=== PATIENT | female | born 1975 | race African-American/Black ===

== ENCOUNTER 2017-03-22 05:48 | Inpatient (IN) ==
--- NOTE | 2017-03-20 12:42 | Order Completion Report ---
See report scanned to EMR
--- NOTE | 2017-03-20 12:49 | XRay Report ---
XR chest 2V Indication: Respiratory preoperative evaluation Comparison: None available Findings: The heart and mediastinum are normal in size and configuration. The pulmonary vascularity is normal in caliber. No lung infiltrates, effusions, pneumothorax or other abnormality is demonstrated. Impression: Normal chest x-ray PROCEDURE INTERPRETED AT [facility] DEPARTMENT OF RADIOLOGY Final Report Signed by: Dr. Dandy Orellana
[2017-03-20 13:19] LABS: Basophils # 0.1 10*3/uL (0.0-0.2); Basophils % 0.8 % (0.0-0.8); Eosinophils # 0.2 10*3/uL (0.0-0.87); Eosinophils % 2.3 % (0.00-10.9); Hematocrit 46.2 VOL% (35.7-47.0); Hemoglobin 15.7 GM/DL (12.0-16.0); Immature Granulocytes % 0.2 %; Immature Granulocytes Absolute 0.01 #; Lymphocytes # 2.6 10*3/uL (1.4-4.0); Lymphocytes % 39.4 % (21.3-54.2); Mean Corpuscular Hemoglobin 29 PG (27-34); Mean Corpuscular Volume 85.4 FL (87-102); Mean Platelet Volume 12.2 FL (9.6-12.0); Monocytes # 0.5 10*3/uL (0.11-0.8); Monocytes % 7.9 % (1.7-12.7); Neutrophils # 3.3 10*3/uL (1.4-7.4); Neutrophils % 49.4 % (38.7-73.9); Platelet Count 253 T/CUMM (130-400); Red Blood Count 5.41 MC/CUMM (3.8-5.5); Red Cell Distribution Width 13.5 % (9.3-17.3); White Blood Count 6.6 T/CUMM (4-12)
[2017-03-20 13:30] LABS: Apearance,Urine CLOUDY (Clear); Bacteria,Urine Many /HPF (Few); Bilirubin,Urine Negative (Negative); Blood, Urine Small mg/dL (Negative); Glucose,Urine (UA) Negative (Negative); Hyaline Casts,Urine 1 /LPF (0-3); Ketones,Urine Negative (Negative); Mucus,Urine Few /LPF (Occasional); Nitrite,Urine Negative (Negative); Protein,Urine 30 MG/DL; RBC,Urine 2 /HPF (0-4); Squamous Epithelial Cell,Urine Occasional /HPF (0-10); Urine Color Yellow (Yellow); Urine Specific Gravity 1.029 (1.001-1.035); WBC,Urine 2 /HPF (0-6)
[2017-03-20 14:14] LABS: Albumin 4.1 G/DL (3.4-5.0); Bilirubin,Total 0.6 MG/DL (0.2-1.0); Calcium 9.4 MG/DL (8.5-10.1); Osmolality,Calculated 280.4 MOS/KG (273-304); Potassium 3.1 MMOL/L (3.5-5.1); Risk Ratio 5.63; VLDL CHOLESTEROL 19.6 MG/DL
[2017-03-20 14:43] LABS: HIV Antigen/Antibody Result Nonreactive (Nonreactive)
[2017-03-22] MEDS ORDERED: LACTATED RINGERS 1,000 ML IV SCH ×2 (06:00→12:30)
[2017-03-22] MEDS ORDERED: AMPICILLIN/SULBACTAM 3,000 MG in SODIUM CHLORIDE 0.9% 50 ML IV ONE (07:30)
[2017-03-22] MEDS ORDERED: AMPICILLIN/SULBACTAM 3,000 MG VIAL ONE (07:58)
[2017-03-22] MEDS ORDERED: SODIUM CHLORIDE 0.9% 50 ML IV ONE (07:59)
[2017-03-22] MEDS ORDERED: SUGAMMADEX 200 MG/2 ML VIAL IV ONE (11:26)
--- NOTE | 2017-03-22 11:58 | Operative Note ---
Date of procedure: 03/22/17 Procedure: Preoperative diagnosis: [] Severe pelvic pain Postoperative diagnosis: Same Anesthesia: General. endotracheal anesthesia Estimated blood loss: [] 300 cc Surgeon: Dr. Guevara Findings: [] Uterine fibroids, pelvic adhesions, tubal ovarian bowel adhesions. Procedure: OSMEL/BSO The risks benefits and indications and alternatives the procedure were reviewed with the patient and informed consent was obtained. The patient was taken to the operating room with IV running and a Bennett catheter in place. Patient was placed in supine position, given general anesthesia, prepped and draped in the usual sterile fashion. An abdominal incision was made approximately 2 cm above the symphysis pubis and extended sharply to the rectus fascia. The fascia was then excised bilaterally with the curved Molina scissors. And the muscles of the anterior abdominal wall were in the midline by sharp and blunt dissection. Peritoneum was grasped between 2 pickups, elevated and entered sharply with the scalpel. The pelvis was examined with the findings noted above. A abdominal retractor was placed into the incision and the bowel packed away with moist laparotomy sponges. [] A tenaculum was placed on the cornea and used for retraction. The round ligaments on both sides were clamped, transected and suture ligated with 0 Vicryl the anterior leaf of the broad ligament was incised along the bladder was reflection to the midline from both sides. The bladder was then gently dissected off the lower uterine segment and the cervix with a sponge stick. The infundibulopelvic ligaments on both sides were then doubly clamped, transected and suture ligated with 0 Vicryl. Hemostasis was visualized. The uterine arteries were skeletonized bilaterally, clamped with Jacinto clamps, transected and suture ligated with 0 Vicryl and, hemostasis was assured. The uterosacral ligament were clamped on both sides, transected, and suture ligated in a similar fashion the cervix and uterus were amputated with cautery. The vaginal cuff angles were closed with [id number] stitches of 0 Vicryl and were transfixed to the ipsilateral cardinal and uterosacral ligaments. The remainder of the vaginal cuff was closed with a series of interrupted 0 Vicryl [id number] sutures hemostasis was assured. The ureters were identified bilaterally were well within normal limits the pelvis was irrigated copiously with warm normal saline. All laparotomy sponges and instruments were removed from the abdomen. The fascia was closed with running 0 Vicryl, and hemostasis was assured the skin was closed with patrice. Sponges, lap, needle and instrument counts were correct -2. The patient was extubated in the operating room was taken to the PAC unit, awake and in stable condition.. Surgeon / Physician: Sachi Guevara Results - Labs CBC & BMP: 03/20/17 13:09 03/20/17 13:09 Discharge Plan - Discharge Medications No Action hydroCHLOROthiazide [Hydrochlorothiazide] 25 mg PO DAILY amLODIPine [Norvasc] 10 mg PO DAILY - Follow Up or Referral - Forms/Instructions
[2017-03-22] MEDS ORDERED: ACETAMINOPHEN 325 MG TABLET PO PRN (12:00)
[2017-03-22] MEDS ORDERED: BISACODYL 10 MG SUPP RECTAL PRN (12:00)
[2017-03-22] MEDS ORDERED: ONDANSETRON 4 MG/2 ML VIAL IV PRN ×2 (12:00→12:01)
[2017-03-22] MEDS ORDERED: BENZOCAINE/MENTHOL LOZENGE 18/BOX PO PRN (12:00)
[2017-03-22] MEDS ORDERED: IBUPROFEN 800 MG TABLET PO PRN (12:00)
[2017-03-22] MEDS: HYDROmorphone 2 MG/1 ML VIAL IV PRN ×4 (12:09→12:31)
[2017-03-22] MEDS ORDERED: PROPOFOL 200 MG/20 ML VIAL IV ONE (12:25)
[2017-03-22] MEDS ORDERED: MIDAZOLAM 2 MG/2 ML VIAL ONE (12:25)
[2017-03-22] MEDS ORDERED: KETOROLAC 30 MG/1 ML VIAL ONE (12:25)
[2017-03-22] MEDS ORDERED: ONDANSETRON 4 MG/2 ML VIAL ONE (12:25)
[2017-03-22] MEDS ORDERED: fentaNYL 100 MCG/2 ML VIAL ONE (12:25)
[2017-03-22] MEDS ORDERED: DESFLURANE 1 UNIT/15 MINUTE INH ONE (12:25)
[2017-03-22] MEDS ORDERED: LACTATED RINGERS 1,000 ML IV ONE (12:26)
[2017-03-22] MEDS ORDERED: ACETAMINOPHEN 1,000 MG/100 ML VIAL IV ONE (12:26)
[2017-03-22] MEDS ORDERED: ROCURONIUM 100 MG/10 ML VIAL IV ONE (12:26)
[2017-03-22] MEDS ORDERED: SUCCINYLCHOLINE 200 MG/10 ML VIAL ONE (12:26)
[2017-03-22] MEDS ORDERED: HYDROmorphone PCA 30 MG/30 ML SYRINGE IV ONE (13:11)
[2017-03-22] MEDS ORDERED: HYDROmorphone PCA 30 MG/30 ML SYRINGE IV SCH (13:20)
[2017-03-22] MEDS ORDERED: NALOXONE 0.4 MG/ML VIAL IV PRN (13:26)
[2017-03-22] MEDS: ENOXAPARIN 40 MG/0.4 ML SYRINGE SUBCUT SCH (17:55)
[2017-03-22 18:24] LABS: Basophils % 0.2 % (0.0-0.8); Eosinophils % 0.2 % (0.00-10.9); Hemoglobin 13.7 GM/DL (12.0-16.0); Immature Granulocytes % 0.4 %; Immature Granulocytes Absolute 0.05 #; Lymphocytes # 1.9 10*3/uL (1.4-4.0); Lymphocytes % 15.5 % (21.3-54.2); Mean Corpuscular HGB Conc 34.3 GM/DL (32-36); Mean Corpuscular Hemoglobin 29 PG (27-34); Mean Corpuscular Volume 85.1 FL (87-102); Mean Platelet Volume 12.3 FL (9.6-12.0); Monocytes # 0.5 10*3/uL (0.11-0.8); Monocytes % 4.4 % (1.7-12.7); Neutrophils # 9.7 10*3/uL (1.4-7.4); Neutrophils % 79.3 % (38.7-73.9); Platelet Count 225 T/CUMM (130-400); Red Cell Distribution Width 13.2 % (9.3-17.3); White Blood Count 12.3 T/CUMM (4-12)
[2017-03-23] MEDS: LACTATED RINGERS 1,000 ML IV SCH ×2 (01:40)
[2017-03-23 05:10] LABS: Basophils % 0.4 % (0.0-0.8); Eosinophils # 0.1 10*3/uL (0.0-0.87); Eosinophils % 1.3 % (0.00-10.9); Hematocrit 39.9 VOL% (35.7-47.0); Hemoglobin 13.4 GM/DL (12.0-16.0); Immature Granulocytes % 0.3 %; Immature Granulocytes Absolute 0.02 #; Lymphocytes # 1.5 10*3/uL (1.4-4.0); Lymphocytes % 20.1 % (21.3-54.2); Mean Corpuscular HGB Conc 33.6 GM/DL (32-36); Mean Corpuscular Hemoglobin 29 PG (27-34); Mean Corpuscular Volume 86.6 FL (87-102); Monocytes # 0.7 10*3/uL (0.11-0.8); Monocytes % 9.5 % (1.7-12.7); Neutrophils # 5.3 10*3/uL (1.4-7.4); Neutrophils % 68.4 % (38.7-73.9); Platelet Count 218 T/CUMM (130-400); Red Blood Count 4.61 MC/CUMM (3.8-5.5); Red Cell Distribution Width 13.6 % (9.3-17.3); White Blood Count 7.7 T/CUMM (4-12)
[2017-03-23] MEDS: DOCUSATE SODIUM 100 MG CAPSULE PO PRN (08:02)
--- NOTE | 2017-03-23 08:03 | Anesthesia Post-Op ---
Anesthesia Post OP - Post Ansesthetic Evaluation Patient seen in post op: Yes Resp: within normal limits CV: within normal limits Mental: within normal limits Temp: within normal limits [id number]: within normal limits Nausea and Vomiting: within normal limits Pain: within normal limits
--- NOTE | 2017-03-23 12:22 | Pathology Report from [facility] ---
[facility] [place] # : [id number] PATIENT NAME : Cielo Ricci ORDERING DR : NIDA APODACA MD CLINICAL HX: Pelvic pain, uterine fibroids POST-OP DX: Same SPECIMEN INFO: Uterus, cervix, bilateral tubes & ovaries GROSS DESCRIPTION: The specimen is received in formalin labeled with the patients name CIELO RICCI and consists of a 143 gram uterus and cervix measuring 12.0 x 6.0 x 5.5 cm. The serosa is red-rinaldi with adhesions present. The cervix measures 2.5 cm. The cervical os measures 0.5 cm. The endocervical canal is rinaldi and patent. The endometrial cavity has an average mucosal thickness of 0.3 cm. A possible polyp is present in the cavity which measures 2.0 x 1.3 cm. Sectioning reveals several pink-white myometrial nodules measuring up to 2.1 x 2.0 cm. The right ovary measures 3.0 x 2.7 cm with adhesions noted on the ovary surface. Sectioning reveals no gross abnormalities. The adjacent fallopian tube is fimbriated measuring 5.5 x 0.7 cm with paratubal adhesions noted. The left ovary measures 3.5 x 2.7 cm with adhesions noted on the ovary surface. Sectioning reveals no gross abnormalities. The adjacent fallopian tube is fimbriated and measures 6.0 x 0.7 cm. Sections submitted: A cervix, B and C endomyometrium, D serosal adhesions, posterior uterine serosa, E nodules, F right ovary and tube, G left ovary and tube. DIAGNOSIS FOR CIELO RICCI: UTERUS, CERVIX, BILATERAL TUBES & OVARIES: Chronic cervicitis. Cystic proliferative endometrium with polypoid changes. Leiomyomas. Right ovary with fibrosis; fallopian tube. Left ovary with fibrosis; fallopian tube. COLLECTED DATE: 03/22/2017 [facility] REPORT DATE: 03/23/2017 ELECTRONICALLY SIGNED BY: Tc Arizmendi M.D. 03/23/2017 - 9:05:37 [facility]
[2017-03-23] MEDS ORDERED: IBUPROFEN 800 MG TABLET ONE (14:13)
[2017-03-23] MEDS: oxyCODONE/ACETAMINOPHEN 5-325 MG TABLET PO PRN ×2 (14:16→22:16)
[2017-03-23] MEDS: IBUPROFEN 800 MG TABLET PO PRN ×2 (14:18→22:16)
[2017-03-23] MEDS: ENOXAPARIN 40 MG/0.4 ML SYRINGE SUBCUT SCH (17:47)
[2017-03-23] MEDS: MAGNESIUM HYDROXIDE SUSP 30 ML UDCUP PO PRN (20:58)
[2017-03-24] MEDS ORDERED: MAGNESIUM CITRATE 300 ML BOTTLE PO ONE (10:20)
[2017-03-24] MEDS ORDERED: PHENOL 1.4% THROAT SPRAY 177 ML BOTTLE PO PRN (10:29)
[2017-03-24] MEDS: oxyCODONE/ACETAMINOPHEN 5-325 MG TABLET PO PRN ×3 (10:34→19:52)
--- NOTE | 2017-03-24 11:05 | Progress Note ---
Family Medicine PN Sub Interval history: Postoperative day #2 Status post OSMEL/BSO secondary to severe pelvic pain uterine fibroids Abdomen soft bowel sounds are quiet incision sites intact with patrice Extremities well with no limits neurologic grossly intact Assessment and plan Continue with present therapy will include assist patient in terms of ambulating and obtaining a bowel movement. Possible discharge in a.m. appropriate analgesic will be administered. Exam (Progress Note) - Constitutional Vitals: Period Temp Pulse Resp BP Sys/Felix Pulse Ox Last 24 Hr 97 F-98.3 F 83-97 18-20 108-145/55-78 95-98 Results - Labs CBC & BMP: 03/23/17 03:53 03/20/17 13:09 Quality Measures - VTE Contraindication to Pharmacological VTE Prophylaxis: Clinical assessment deems Pt at low risk, no prophalaxis needed Specialty Discharge - Follow Up or Referrals Follow up with: Sachi Guevara MD [Physician] - 03/30/17 2:00 pm
[2017-03-24] MEDS ORDERED: SIMETHICONE CHEW 80 MG TABLET PO PRN (18:53)
[2017-03-24] MEDS: DOCUSATE SODIUM 100 MG CAPSULE PO PRN (19:53)
[2017-03-24] MEDS: MAGNESIUM HYDROXIDE SUSP 30 ML UDCUP PO PRN (21:12)
[2017-03-24] MEDS: IBUPROFEN 800 MG TABLET PO PRN (22:42)
[2017-03-25] MEDS ORDERED: METOCLOPRAMIDE 10 MG TABLET PO SCH (04:00)
[2017-03-25 07:56] VITALS: BP 135/80
--- NOTE | 2017-03-25 09:15 | Discharge Summary ---
Hospital Course - Hospital Course Hospital Course: Postoperative day #3 Status post OSMEL/BSO secondary to severe pelvic pain uterine fibroids Lungs are clear cardiac exam benign abdomen soft incision sites intact Extremities well with no limits and neurologically she is grossly intact Assessment plan DC today We will have this patient also follow with a historical manuscripts curator for sleep studies, O2 sats decreased to approximately 89 during the night. Patient received Lovenox for 3 days until her ambulation was complete. She will be encouraged to increase her ambulation at home This patient also complained of abdominal pain and discomfort appropriately she will be discharged with Lortab and also Motrin. She return to our office in 1 week for half of the patrice to be removed. Postoperative instructions were thoroughly given. Specialty Discharge - Follow Up or Referrals Follow up with: Sachi Guevara MD [Physician] - 03/30/17 2:00 pm Discharge Plan - Discharge Data Condition at Discharge: Stable Discharge Diet: advance to your usual diet Activity: resume usual activities as tolerated, increase activity as tolerated Hygiene: may shower Weight Bearing at Discharge: full weight bearing Driving: not until seen by doctor Contact your physician if you experience:: fever over 101, Shortness of breath, Bleeding, pain uncontrolled by pain medications - Discharge Medications New oxyCODONE/ACETAMINOPHEN 5-325 [Percocet 5-325] 2 tablet PO Q4H PRN #20 tablet PRN Reason: Pain Moderate (4-7) HYDROcodone/ACETAMIN 5-325 [Harrison 5-325] 2 tablet PO Q4H PRN #40 tablet PRN Reason: Pain Moderate (4-7) Ibuprofen Tab [Motrin Tab] 800 mg PO Q6H PRN #30 tablet PRN Reason: Pain Continue hydroCHLOROthiazide [Hydrochlorothiazide] 25 mg PO DAILY amLODIPine [Norvasc] 10 mg PO DAILY - Follow Up or Referral Follow Up: Sachi Guevara MD [Physician] - 03/30/17 2:00 pm - Forms/Instructions Instructions: Abdominal Hysterectomy (DC), Open Salpingo-oophorectomy (DC) Exam - Constitutional Vitals: Period Temp Pulse Resp BP Sys/Felix Pulse Ox Last 24 Hr 96.7 F-99.9 F 85-111 16-20 125-154/67-92 88-98 Discharge Results Procedures and tests throughout hospitalization: Pending Orders 03/22/17 10:00 Urinalysis Routine DS: Provider Date of admission: 03/22/17 05:48 Primary care physician: Zenon Bernal Attending physician on admission: Sachi Guevara MD Discharging clinician: Sachi Guevara MD
== END 2017-03-25 11:05 | disposition home or self-care (01) | DRG 742 ==
LOC: N.SDSINP 05:48 → N.OR 05:48 → N.SDSINP 05:51 → EDSTATUS 09:30 → N.OB 11:59
PROVIDERS: ADMIT Obstetrics & Gynecology; ATTEND Obstetrics & Gynecology

== ENCOUNTER 2021-06-23 13:07 | Inpatient (IN) ==
[2021-06-23] MEDS ORDERED: SODIUM CHLORIDE 0.9% 1,000 ML IV STA (16:25)
[2021-06-23] MEDS ORDERED: ONDANSETRON 4 MG/2 ML VIAL IV STA (16:25)
[2021-06-23] MEDS ORDERED: KETOROLAC 30 MG/1 ML VIAL IV STA (16:34)
[2021-06-23] MEDS ORDERED: DEXAMETHASONE 10 MG/1 ML VIAL IV STA (16:34)
[2021-06-23] MEDS ORDERED: AZITHROMYCIN INJ 500 MG in SODIUM CHLORIDE 0.9% 250 ML IV STA (17:48)
[2021-06-23] MEDS ORDERED: cefTRIAXone 1,000 MG in SODIUM CHLORIDE 0.9% 100 ML IV STA (17:48)
[2021-06-23] MEDS ORDERED: cefTRIAXone 1,000 MG VIAL ONE (17:49)
[2021-06-23 17:59] LABS: Basophils % 0.5 % (0.0-0.8); Hematocrit 46.2 VOL% (35.7-47.0); Hemoglobin 14.7 GM/DL (12.0-16.0); Immature Granulocytes % 0.5 %; Immature Granulocytes Absolute 0.02 #; Lymphocytes % 47.5 % (21.3-54.2); Mean Corpuscular HGB Conc 31.8 GM/DL (32-36); Mean Corpuscular Volume 87.2 FL (87-102); Mean Platelet Volume 12.1 FL (9.6-12.0); Monocytes % 10.7 % (1.7-12.7); Neutrophils % 40.8 % (38.7-73.9); Platelet Count 253 T/CUMM (130-400); Red Cell Distribution Width 14.1 % (9.3-17.3); White Blood Count 4.2 T/CUMM (4-12)
[2021-06-23 18:12] LABS: INR 1.1
[2021-06-23 18:15] LABS: Albumin 3.2 G/DL (3.4-5.0); Bilirubin,Total 0.6 MG/DL (0.20-1.00); Calcium 8.4 MG/DL (8.5-10.1); Osmolality,Calculated 276.7 MOS/KG (273-304); Potassium 3.6 MMOL/L (3.5-5.1); Total Protein 7.6 G/DL (6.4-8.2)
[2021-06-23 18:52] LABS: Band Neutrophils 2 % (0-10); Lymphocytes 35 % (20-55); Segmented Neutrophils 52 % (50-85); Total Cells Counted 100
[2021-06-23 18:53] LABS: Macrocytosis Slight; Spherocytes 1+
[2021-06-23 18:54] LABS: Platelet Estimate Decreased
[2021-06-23] MEDS ORDERED: ONDANSETRON 4 MG/2 ML VIAL IV PRN (20:12)
[2021-06-23] MEDS ORDERED: GLUCAGON 1 MG VIAL IM PRN ×2 (20:12)
[2021-06-23] MEDS ORDERED: DEXTROSE 50% 25 GM/50 ML VIAL IV PRN (20:12)
[2021-06-23] MEDS ORDERED: ACETAMINOPHEN 325 MG TABLET PO PRN (20:12)
[2021-06-23] MEDS ORDERED: LOPERAMIDE 2 MG CAPSULE PO PRN (20:13)
[2021-06-23] MEDS ORDERED: MELATONIN 3 MG TABLET PO PRN (20:18)
[2021-06-23] MEDS ORDERED: DEXTROSE 50% 25 GM/50 ML SYRINGE IV PRN (20:25)
[2021-06-23] MEDS ORDERED: LEVOFLOXACIN INJ 750 MG/150 ML PREMIX IV SCH (20:30)
[2021-06-23] MEDS ORDERED: REMDESIVIR 200 MG in SODIUM CHLORIDE 0.9% 210 ML IV ONE (23:00)
[2021-06-23] MEDS: INSULIN REGULAR 100 UNIT/ML SUBCUT SCH (23:14)
[2021-06-23] MEDS: ASCORBIC ACID 500 MG TABLET PO SCH (23:14)
[2021-06-23] MEDS: ENOXAPARIN 40 MG/0.4 ML SYRINGE SUBCUT SCH (23:14)
[2021-06-23] MEDS: SODIUM CHLORIDE 0.45% 1,000 ML IV SCH (23:15)
[2021-06-24 05:43] LABS: Hematocrit 45.3 VOL% (35.7-47.0); Hemoglobin 14.4 GM/DL (12.0-16.0); Immature Granulocytes % 0.5 %; Immature Granulocytes Absolute 0.02 #; Lymphocytes # 1.5 10*3/uL (1.4-4.0); Lymphocytes % 38.4 % (21.3-54.2); Mean Corpuscular HGB Conc 31.8 GM/DL (32-36); Mean Corpuscular Volume 87.8 FL (87-102); Neutrophils % 54.1 % (38.7-73.9); Platelet Count 241 T/CUMM (130-400); Red Blood Count 5.16 MC/CUMM (3.8-5.5); Red Cell Distribution Width 13.9 % (9.3-17.3); White Blood Count 3.8 T/CUMM (4-12)
[2021-06-24 06:09] LABS: Ferritin 378.1 ng/mL (8-252)
[2021-06-24 06:17] LABS: Calcium 8.1 MG/DL (8.5-10.1); Osmolality,Calculated 277.2 MOS/KG (273-304); Potassium 3.9 MMOL/L (3.5-5.1)
[2021-06-24] MEDS: DEXAMETHASONE 10 MG/1 ML VIAL IV SCH (08:31)
[2021-06-24] MEDS: INSULIN REGULAR 100 UNIT/ML SUBCUT SCH ×4 (08:31→20:54)
[2021-06-24] MEDS: ENOXAPARIN 40 MG/0.4 ML SYRINGE SUBCUT SCH ×2 (08:32→20:54)
[2021-06-24] MEDS: ASCORBIC ACID 500 MG TABLET PO SCH ×2 (08:32→20:54)
[2021-06-24] MEDS: CHOLECALCIFEROL 1,000 UNIT TABLET PO SCH (08:33)
[2021-06-24] MEDS: PANTOPRAZOLE 40 MG TABLET PO SCH (08:33)
[2021-06-24] MEDS: ZINC GLUCONATE 50 MG TABLET PO SCH (08:33)
[2021-06-24] MEDS: REMDESIVIR 100 MG in SODIUM CHLORIDE 0.9% 100 ML IV SCH (09:37)
[2021-06-24] MEDS: SODIUM CHLORIDE 0.45% 1,000 ML IV SCH ×3 (09:41→20:00)
[2021-06-24] MEDS: hydroCHLOROthiazide 25 MG TABLET PO SCH (14:16)
[2021-06-24] MEDS: amLODIPine 5 MG TABLET PO SCH (14:16)
[2021-06-24] MEDS: LOSARTAN 50 MG TABLET PO SCH (14:16)
[2021-06-24] MEDS ORDERED: SIMVASTATIN 40 MG TABLET PO SCH (21:00)
[2021-06-25 05:26] LABS: Basophils % 0.2 % (0.0-0.8); Hematocrit 45.1 VOL% (35.7-47.0); Hemoglobin 14.2 GM/DL (12.0-16.0); Immature Granulocytes % 0.4 %; Immature Granulocytes Absolute 0.02 #; Lymphocytes # 1.6 10*3/uL (1.4-4.0); Lymphocytes % 28.6 % (21.3-54.2); Mean Corpuscular HGB Conc 31.5 GM/DL (32-36); Mean Corpuscular Volume 87.4 FL (87-102); Mean Platelet Volume 12.2 FL (9.6-12.0); Monocytes % 8.6 % (1.7-12.7); Neutrophils % 62.2 % (38.7-73.9); Platelet Count 261 T/CUMM (130-400); Red Blood Count 5.16 MC/CUMM (3.8-5.5); Red Cell Distribution Width 13.7 % (9.3-17.3); White Blood Count 5.5 T/CUMM (4-12)
[2021-06-25 05:40] LABS: Calcium 8.5 MG/DL (8.5-10.1); Osmolality,Calculated 277.2 MOS/KG (273-304); Potassium 3.8 MMOL/L (3.5-5.1)
[2021-06-25 05:47] LABS: Ferritin 369.9 ng/mL (8-252)
[2021-06-25 05:49] LABS: Anisocytosis Slight; Platelet Estimate Normal
[2021-06-25] MEDS: REMDESIVIR 100 MG in SODIUM CHLORIDE 0.9% 100 ML IV SCH (08:24)
[2021-06-25] MEDS: INSULIN REGULAR 100 UNIT/ML SUBCUT SCH ×2 (08:24→11:54)
[2021-06-25] MEDS: ENOXAPARIN 40 MG/0.4 ML SYRINGE SUBCUT SCH (08:25)
[2021-06-25] MEDS: PANTOPRAZOLE 40 MG TABLET PO SCH (08:25)
[2021-06-25] MEDS: ZINC GLUCONATE 50 MG TABLET PO SCH (08:25)
[2021-06-25] MEDS: CHOLECALCIFEROL 1,000 UNIT TABLET PO SCH (08:25)
[2021-06-25] MEDS: LOSARTAN 50 MG TABLET PO SCH (08:25)
[2021-06-25] MEDS: ASCORBIC ACID 500 MG TABLET PO SCH (08:25)
[2021-06-25] MEDS: amLODIPine 5 MG TABLET PO SCH (08:25)
[2021-06-25] MEDS: hydroCHLOROthiazide 25 MG TABLET PO SCH (08:25)
[2021-06-25] MEDS: DEXAMETHASONE 10 MG/1 ML VIAL IV SCH (08:26)
[2021-06-25 11:53] VITALS: BP 128/78
[2021-06-25] MEDS: SODIUM CHLORIDE 0.45% 1,000 ML IV SCH (12:56)
== END 2021-06-25 12:50 | disposition home or self-care (01) | DRG 177 ==
LOC: N.ED 13:07 → SUATTDRO 20:05 → N.EDINP 20:05 → N.3E 21:01
PROVIDERS: ADMIT Internal Medicine; ATTEND Internal Medicine